=== PATIENT | female | born 1965 | race Caucasian/White ===

== ENCOUNTER 2025-03-16 12:34 | Outpatient (OUT) | payer BC, SELFPAY ==
--- OUTSIDE RECORDS SUMMARY | 2025-02-27 09:15 | XMS_ITS | Encounter Summary ---
Author Organization [facility] Address [address], [address] [place] [address] Care Team Providers Care Protection Engineer Name Role Phone Masha Miner [employer] Primary Care Provide r Encounter Details DateTypeDepartmentCare Team (Latest Contact Info)Juctujqxcld79/08/2025 9:15 AM EST - 03/01/2025 11:59 PM ESTHospital Encounter [facility] [address] [place], [place] [id number] Pain Discharge Disposition: Home or Self Care Social History Tobacco UseTypesPacks/DayYears UsedDateSmoking Tobacco: NeverSmokeless Tobacco: NeverAlcohol UseStandard Drinks/WeekCommentsYes0 (1 standard drink = 0.6 oz pure alcohol)[facility] UtilitiesAnswerDate RecordedIn the past 12 months has the [employer], gas, oil, or water [employer] threatened to shut off services in your home?No06/03/2024Overall Financial Resource Strain (CARDIA)AnswerDate Recorded How hard is it for you to pay for the very basics like food, housing, medical care, and heating?Not hard at all07/29/2023HQ-2AnswerDate RecordedPHQ-9 Total Eizrz240Hunger Vital SignAnswerDate RecordedWithin the past 12 months, you worried that your food would run out before you got the money to buymore. Never true06/03/2024Within the past 12 months, the food you bought just didn't last and you didn't have money to get more.Never true06/03/2024PRAPARE - TransportationAnswerDate RecordedIn the past 12 months, has lack of transportation kept you from medical appointments or from getting medications?No 06/03/2024In the past 12 months, has lack of transportation kept you from meetings, work, or from getting things needed for daily living?No06/03/2024 Housing Stability Vital SignAnswerDate RecordedUnable to Pay for Housing in the Last YearNot on file07/29/2023Number of Places Lived in the Last YearNot on file 07/29/2023In the last 12 months, was there a time when you did not have a steady place to sleep or slept in ashelter (including now)?No07/29/2023Housing Stability Vital SignAnswerDate RecordedIn the last 12 months, was there a time when you were not able to pay the mortgage or rent on time?No06/03/2024In the past 12 months, how many times have you moved where you were living? At any time in the past 12 months, were you homeless or living in a residential (including now)?No06/03/2024Food InsecurityAnswerDate RecordedWithin the past 12 months, you worried that your food would run out before you got the money to buy more.Within the past 12 months, the food you bought just didn't last and you didn't have money to get more.CommentsNoSex and Gender InformationValueDate RecordedSex Assigned at EpsuwOqgxyh33/25/2025 5:46 AM EDTLegal NliAjjmgw52/10/2013 6:41 PM ESTGender XjvdsykdUmgesc17/25/2025 5:46 AM EDTSexual OrientationNot on filedocumented as of this encounter Medications at Time of Discharge MedicationSigDispense QuantityRefillsLast FilledStart DateEnd Date Bacillus Coagulans-Inulin (PROBIOTIC) 1-250 BILLION-MG CAPS Take by mouth every morning topiramate (TOPAMAX) 100 MG tablet Indications:Migraine without aura and without status migrainosus, not intractableTake 1 tablet by mouth 2 times daily 180 tablet 309/ levothyroxine (SYNTHROID) 75 MCG tablet Take 1 tablet by mouth daily 90 tablet atorvastatin (LIPITOR) 20 MG tablet Take 1 tablet by mouth once daily 90 tablet citalopram (CELEXA) 20 MG tablet Take 1 tablet by mouth once daily 90 tablet [place]-3 Fatty Acids (FISH OIL PO) Fish Oil Cholecalciferol (VITAMIN D-3 PO) Vitamin X5cypwgptlow as of this encounter Plan of Treatment DateTypeDepartmentCare Team (Latest Contact Info)Hyoitslflqk70/16/2025 2:30 PM ESTOffice Visit [facility] Special[facility] Providers on Main [address] [address] Frank Barton MD [address] [place] [phone] 6 week follow up04/20/2025 7:20 AM ESTOffice Visit [facility] [address] [place] [address] [address] [place], [place] [id number] Masha Miner, [employer] [address] [place] [address] [address] [place] [address] 6 month f/udocumented as of this encounter Procedures Procedure NamePriorityDate/TimeAssociated DiagnosisCommentsXR FOOT RIGHT (MIN 3 VIEWS)Kxsurgk8102/27/2025 9:52 AM EST Pain documented in this encounter Results * XR FOOT RIGHT (MIN 3 VIEWS) (02/27/2025 9:52 AM EST)Anatomical Region LateralityModalityFoot, AnkleComputed RadiographySpecimen (Source)Anatomical Location / LateralityCollection Method / VolumeCollection TimeReceived Time 03/01/2025 3:06 PM EST Impressions 03/01/2025 3:07 PM EST 1. Mild degenerative change of the dorsal talonavicular joint. 2. No acute fracture or dislocation. Narrative 03/01/2025 3:07 PM EST EXAMINATION: THREE XRAY VIEWS OF THE RIGHT FOOT 02/27/2025 9:49 am COMPARISON: 01/31/2016 HISTORY: ORDERING SYSTEM PROVIDED HISTORY: Pain 59-year-old female with right foot pain FINDINGS: Osseous alignment is normal. ??Mild degenerative change of the dorsal talonavicular joint. ??Cornuate process at the medial navicular. ??No marginal erosions are identified. ??No acute fracture or gross dislocation is seen. The medial and middle cuneiforms demonstrate proper alignment with the base of the 1st and 2nd metatarsals respectively. No tibiotalar joint effusion is seen. Boehler's angle is maintained. Procedure Note Donnell Horner MD - 03/01/2025 EXAMINATION: THREE XRAY VIEWS OF THE RIGHT FOOT 02/27/2025 9:49 am COMPARISON: 01/31/2016 HISTORY: ORDERING SYSTEM PROVIDED HISTORY: Pain 59-year-old female with right foot pain FINDINGS: Osseous alignment is normal. Mild degenerative change of the dorsal talonavicular joint. Cornuate process at the medial navicular. Nomarginal erosions are identified. No acute fracture or gross dislocation isseen. The medial and middle cuneiforms demonstrate proper alignment with thebase of the 1st and 2nd metatarsals respectively. No tibiotalar joint effusion is seen. Boehler's angle is maintained. IMPRESSION: 1. Mild degenerative change of the dorsal talonavicular joint. 2. No acute fracture or dislocation. Authorizing ProviderResult TypeResult StatusJoel W Consolo DPMIMG DIAGNOSTIC IMAGING ORDERABLESFinal Result documented in this encounter Visit Diagnoses Diagnosis Pain Generalized pain documented in this encounter Care Teams Team MemberRelationshipSpecialtyStart DateEnd Date Masha Miner, [employer] [address] [facility] [address] [place] [address] PCP - GeneralFamily Nurse Practitioner09/12/22documented as of this encounter
--- OUTSIDE RECORDS SUMMARY | 2025-03-16 12:37 | XMS_ITS | Clinical Summary ---
Author Organization [facility] Address [address], [address] [place] [address] Care Team Providers Care Analyst Programmer Name Role Phone Masha Miner SHIP'S SURVEYOR - COMMUNICATION CLERK Primary Care Provide r Allergies No known active allergies Medications MedicationSigDispense QuantityRefillsLast FilledStart DateEnd DateStatus Buffalo-3 Fatty Acids (FISH OIL PO) Fish OilActive Cholecalciferol (VITAMIN D-3 PO) Vitamin O6Vebbfz citalopram (CELEXA) 20 MG tablet Take 1 tablet by mouth once daily 90 tablet 5Active atorvastatin (LIPITOR) 20 MG tablet Take 1 tablet by mouth once daily 90 tablet 5Active levothyroxine (SYNTHROID) 75 MCG tablet Take 1 tablet by mouth daily 90 tablet 5Active topiramate (TOPAMAX) 100 MG tablet Indications:Migraine without aura and without status migrainosus, not intractableTake 1 tablet by mouth 2 times daily 180 tablet 5Active Bacillus Coagulans-Inulin (PROBIOTIC) 1-250 BILLION-MG CAPS Take by mouth every morningActive Active Problems ProblemNoted DateDiagnosed DateFamily history of breast cancer in mother 10/08/2023Mixed whrcmybtckyxkr23/09/2023Other jviivlowbiwz23/24/2022ilateral leg edema01/28/2018Renal oczchc5405/01/20171900Uvewvbmkzmjjda34/26/2017GAD (generalized anxiety disorder)08/14/2016Migraine without status migrainosus, not zxhvcdkjily26/05/2016 Resolved Problems ProblemNoted DateDiagnosed DateResolved DateClosed fracture of distal end of efiiah70olon cancer zcvcqilya55Migraine without status migrainosus, not bpmpeyonrdx83Concussion Overview (10/08/2023): Fall injury Fracture of skull as Encounters DateTypeDepartmentCare GcmbCmnnubdprez34/08/2025 9:15 AM EST - 03/01/2025 11:59 PM ESTHospital Encounter [facility] [address] [place], [place] [id number] Pain Discharge Disposition: Home or Self Care02/18/2025bstract [facility] [address] [place] [address] Dr [address] [place] [address] Masha Miner, SHIP'S SURVEYOR - COMMUNICATION CLERK 02/18/2025Telephone [facility] [address] [place] [address] Dr [address] [place] [address] Masha Miner, SHIP'S SURVEYOR - COMMUNICATION CLERK MAMMOGRAM/ULTRASOUND HZMWRO4102/09/2025 3:00 PM EDTOffice Visit [facility] Main [place] [address] [place], [place] [id number] Frank Barton MD Other specified hypothyroidism (Primary Dx); LEONEL (generalized anxiety disorder)01/19/2025Refill [facility] [address] [place] [address] Dr [address] [place] [address] Masha Miner, SHIP'S SURVEYOR - COMMUNICATION CLERK Medication Refillfrom Last 3 Months Immunizations ImmunizationAdministration DatesNext DueCOVID-19, Inactive, J&J, (age 18y+) 07/08/2020Influenza Vaccine, unspecified uzqiwdfjaik49/05/2016Influenza Virus Rvegcrw9102/23/2019Influenza, AFLURIA (age 3 y+), FLUZONE, (age 6 mo+), Quadv MDV, 0.5mL02/23/2019MMR, PRIORIX, M-M-R II, (age 12m+), SC, 0.5mL10/23/2015TDaP, ADACEL (age 10y-64y), BOOSTRIX (age 10y+), IM, 0.5mL10/23/2015 Family History Medical HistoryRelationNameCommentsHeart DiseaseFatherBreast CancerMaternal Aunt Breast CancerMotherHeart DiseaseMotherStrokeMotherOtherSister 1RelationName StatusCommentsFatherMaternal AuntAliveMotherSister 1Sister 2AliveSister 3Alive Social History Tobacco UseTypesPacks/DayYears UsedDateSmoking Tobacco: NeverSmokeless Tobacco: Never Tobacco Cessation:Counseling Given: Not Answered Alcohol UseStandard Drinks/WeekCommentsYes0 (1 standard drink = 0.6 oz pure alcohol)socialAHC UtilitiesAnswerDate RecordedIn the past 12 months has the [employer], gas, oil, or water [place] threatened to shut off services in your home?No06/03/2024Overall Financial Resource Strain (CARDIA)AnswerDate Recorded How hard is it for you to pay for the very basics like food, housing, medical care, and heating?Not hard at all07/29/2023HQ-2AnswerDate RecordedPHQ-9 Total Aojja991Hunger Vital SignAnswerDate RecordedWithin the past 12 months, [...] were you homeless or living in a halfway (including now)?No06/03/2024Food InsecurityAnswerDate RecordedWithin the past 12 months, you worried that your food would run out before you got the money to buy more.Within the past 12 months, the food you bought just didn't last and you didn't have money to get more.CommentsNoSex and Gender InformationValueDate RecordedSex Assigned at QvrouRylkxg27/25/2025 5:46 AM EDTLegal FrzVgvcaw55/10/2013 6:41 PM ESTGender RyupwtzqUogwba15/25/2025 5:46 AM EDTSexual OrientationNot on file Last Filed Vital Signs Vital SignReadingTime TakenCommentsBlood Kxnwznza328/8610 3:05 PM EDT Vxbfz262602/09/2025 3:05 PM DSZAzwawpuwtat86.4 ??C (95.7 ??F)10/19/2024 4:09 PM EDTRespiratory Ydcs753408/24/2023 7:28 AM EDTOxygen Gdcqqdleyj55%02/09/2025 3:05 PM EDTInhaled Oxygen Concentration--Vmqtvh94.8 kg (162 lb 11.2 oz)02/09/2025 3:05 PM VELEjkatw227.9 cm (5' 1 )06/22/2024 11:34 AM ESTBody Mass Index30.74 06/22/2024 11:34 AM EST Plan of Treatment DateTypeDepartmentCare Team (Latest Contact Info)Mlscmmrrnxs22/16/2025 2:30 PM ESTOffice Visit [facility] Main [address] [address] Frank Braton MD [address] [place] [address] 6 week follow up04/20/2025 7:20 AM ESTOffice Visit [facility] [address] [place] [address] [address] [place] [address] Masha Miner, SHIP'S SURVEYOR - COMMUNICATION CLERK [address] [place] [address] [address] [place] [address] 6 month f/uHealth MaintenanceDue DateLast DoneCommentsHIV thpzvg6309/03/1979 Hepatitis C fgkqwt6009/02/1982FIT/FOBT: Average risk2009Fecal-DNA (Cologuard): Average risk2009Sigmoidoscopy/CT ihtragjfksxu70/14/2010 Pneumococcal 50+ years Vaccine (1 of 1 - PCV)2014Shingles vaccine (1 of 2) 2014Flu vaccine (#1), 02/23/2019, 01/25/2016COVID-19 Vaccine (2 - season)/reast cancer cqvadf5401/12/2025 01/13/2024, 08/16/2020, 12/23/2018, Additional history existsColonoscopy /05/2015Colorectal Cancer Ffzgpg2605/24/2025Depression Screen /, 07/14/20249675Svefbp18/19/202606/, 12/28/2023, 01/04/2023, Additional history existsDTaP/Tdap/Td vaccine (2 - Td or Tdap) /06/2015Pap smear/, 05/14/2016Cervical cancer urerqv9010/07/2028HPV (without or with Pap)/2024Respiratory Syncytial Virus (RSV) or age 60 yrs+ (1 - 1-dose 75+ series)09/03/2039 Diabetes bjvwbgVkyqbinkkoee63/19/2025, 12/28/2023, 09/12/2022Hepatitis A vaccine Aged OutNo longer eligible based on patient's age to complete this topic Hepatitis B vaccineAged OutNo longer eligible based on patient's age to complete this topicHib vaccineAged OutNo longer eligible based on patient's age to complete this topicMeningococcal (ACWY) vaccineAged OutNo longer eligible based on patient's age to complete this topicMeningococcal B vaccineAged OutNo longer eligible based on patient's age to complete this topicPolio vaccineAged OutNo longer eligible based on patient's age to complete this topic Procedures Procedure NamePriorityDate/TimeAssociated DiagnosisCommentsXR FOOT RIGHT (MIN 3 VIEWS)Pxmzzkc0902/27/2025 9:52 AM EST Pain LIPID TEWOEUmariaj92/19/2025 7:25 AM EDT Wellness examination HEMOGLOBIN K7AGcqjatu71/19/2025 7:24 AM EDT Wellness examination JUDIE RISA DIGITAL DIAGNOSTIC GMGYJDLSFSelubkt81/23/2024 8:48 AM EDT Mass of lower inner quadrant of left breast Breast skin changes HUMAN PAPILLOMAVIRUS (HPV) DNA PROBE THIN PREP HIGH KJBATyjqqwn56/18/2024 12:00 AM EDT MANAGER COMMERCIAL SALES UEDQUOTSQfmlwbm63/18/2024 12:00 AM EDT COLONOSCOPY W/ OR W/O JVKTESEqfzvzn63/02/2016from Last 3 Months or Most Recently Relevant to Health Maintenance Results * XR FOOT RIGHT (MIN 3 [...] W [place]olo DPMIMG DIAGNOSTIC IMAGING ORDERABLESFinal Result * Lipid Panel (10/08/2024 7:25 AM EDT)ComponentValueRef RangeTest MethodAnalysis TimePerformed AtPathologist SignatureCholesterol, Jgjgv7105 - 199 mg/dL 10/08/2024 7:25 AM EDTMERCY LABORATORIESComment: Cholesterol Guidelines: <200 Desirable 200-240 ??Borderline >240 Undesirable HDL64>40 mg/dL10/08/2024 7:25 AM EDTMERCY LABORATORIESComment: HDL Guidelines: <40 Undesirable 40-59 ?Borderline >59 Desirable LDL Skhqvggwpqk554 - 100 mg/dL10/08/2024 7:25 AM EDTMERCY LABORATORIESComment: LDL Guidelines: <100 Desirable 100-129 ?? Near to/above Desirable 130-159 ?? Borderline >159 Undesirable Direct (measured) LDL and calculated LDL are not interchangeable tests. Chol/HDL Ratio2.6<5.006 7:25 AM EDTMERCY LOYLVGBBFJBHBeroekiupfdjh39<150 mg/dL10/08/2024 7:25 AM EDTMERCY LABORATORIESComment: Triglyceride Guidelines: <150 Desirable 150-199 ??Borderline 200-499 ??High >499 Very high Based on AHA Guidelines for fasting triglyceride, January 2012. HGFG646 - 30 mg/dL10/08/2024 7:25 AM EDTMERCY LABORATORIESSpecimen (Source) Anatomical Location / LateralityCollection Method / VolumeCollection Time Received TimeBloodBLOOD SPECIMEN / Hntpuvy5810/08/2024 7:25 AM EDT10/08/2024 7:26 AM EDT Narrative Authorizing ProviderResult TypeResult Dave Miner SHIP'S SURVEYOR - CNPCHEMISTRY ORDERABLESFinal ResultPerforming OrganizationAddressCity/State/ZIP CodePhone Number [facility] [address] [place] [address], [facility] [phone] [facility] [address] [place] [address], [facility] [phone] * Hemoglobin A1C (10/08/2024 7:24 AM EDT)ComponentValueRef RangeTest Method Analysis TimePerformed AtPathologist SignatureHemoglobin A1C5.14.0 - 6.0 % 10/08/2024 7:24 AM EDTMERCY LABORATORIESEstimated Avg Witbrem811zs/dL 10/08/2024 7:24 AM EDTMERCY LABORATORIESComment: The ADA and AACC recommend providing the estimated average glucose result to permit better patient understanding of their HBA1c result. Specimen (Source)Anatomical Location / LateralityCollection Method / Volume Collection TimeReceived TimeBloodBLOOD SPECIMEN / Wnecutw9610/08/2024 7:24 AM EDT 10/08/2024 7:25 AM EDT Narrative Authorizing ProviderResult TypeResult Dave Miner SHIP'S SURVEYOR - CNPCHEMISTRY ORDERABLESFinal ResultPerforming OrganizationAddressCity/State/ZIP Code[place] [address], [facility] [phone] [place] [id number], [facility] [phone] * (ABNORMAL) JUDIE RISA DIGITAL DIAGNOSTIC BILATERAL (01/13/2024 8:48 AM EDT) Anatomical RegionLateralityModalityBreastBilateralMammographySpecimen (Source) Anatomical Location / LateralityCollection Method / VolumeCollection Time Received Time01/13/2024 9:32 AM EDT Impressions 01/13/2024 9:34 AM EDT Ill-defined area of 3 x 3 x 5 mm hypoechogenicity in the area of palpable concern left breast likely benign. ??Recommend six-month ultrasound follow-up of this finding. BIRADS: BIRADS - CATEGORY 3 Probably Benign Findings. A short interval follow-up is recommended in 6 months. OVERALL ASSESSMENT - PROBABLY BENIGN. A letter of notification will be sent to the patient regarding the results. Performing Facility: [place] [address] Narrative 01/13/2024 9:34 AM EDT EXAMINATION: DIAGNOSTIC DIGITAL BILATERAL BREASTS MAMMOGRAM WITH TOMOSYNTHESIS; TARGETED ULTRASOUND OF THE LEFT BREAST; TARGETED ULTRASOUND OF THE RIGHT BREAST, 01/13/2024 8:48 am TECHNIQUE: Diagnostic mammography of the bilateral breasts was performed with tomosynthesis. ??2D standard and 3D tomosynthesis combination imaging performed through both breasts. ??Computer aided detection was utilized in the interpretation of this exam.; Target ultrasound of the left breast was performed.; Targeted ultrasound of the right breast was performed. Views: COMPARISON: August 16, 2020 HISTORY: ORDERING SYSTEM PROVIDED HISTORY: Mass of lower inner quadrant of left breast FINDINGS: Mammogram: There are scattered areas of fibroglandular density. ??There is no dominant mass, architectural distortion or concerning grouping of microcalcification in either breast. Ultrasound: Ultrasound right breast 6 o'clock 4 cm from the nipple directed by the patient to the area of concern demonstrates no solid or cystic mass. ??No suspicious findings. Ultrasound left breast 5 o'clock position 9 cm from the nipple in the area of palpable concern demonstrates ill-defined 3 x 3 x 5 mm hypoechogenicity. ??No associated vascularity. Additional imaging left axilla and 7 o'clock 6 cm from nipple left breast demonstrates no significant findings. Authorizing ProviderResult TypeResult StatusMasah Miner SHIP'S SURVEYOR - CNPIMG MAMMOGRAPHY ORDERABLESFinal Result * Human papillomavirus (HPV) DNA probe thin prep high risk (10/08/2023 12:00 AM EDT)ComponentValueRef RangeTest MethodAnalysis TimePerformed AtPathologist SignatureSpecimen DescriptionCERVICAL ZOMPBYUE13/18/2024 12:00 AM EDTMERCY LABORATORIESHPV Sample.THIN PREP10/08/2023 12:00 AM EDTMERCY LABORATORIESHPV, Genotype 16Not DetectedNot Mkdqmmvr45/18/2024 12:00 AM EDTMERCY LABORATORIES HPV, Genotype 18Not DetectedNot Irjpwhdj39/18/2024 12:00 AM EDTMERCY LABORATORIESHPV, High Risk OtherNot DetectedNot Yufytkph95/18/2024 12:00 AM EDTMERCY LABORATORIESHPV, Jwlfgbbrrjhnck15/18/2024 12:00 AM EDTMERCY LABORATORIESComment: This test amplifies and detects DNA of 14 high-risk HPV types associated with cervical cancer and its precursor lesions (HPV types 16,18, 31, 33, 35, 39, 45, 51, 52, 56, 58, 59, 66, and 68). ? Sensitivity may be affected by specimen collection methods, stage of infection, and the presence of interfering substances. Results should be interpreted in conjunction with other available laboratory and clinical data. A negative high-risk HPV result does not exclude the possibility of future cytologic HSIL or underlying CIN2-3 or cancer. ? This test is intended for medical purposes only and is not valid for the evaluation of suspected sexual abuse or for other forensic purposes. Specimen (Source)Anatomical Location / LateralityCollection Method / Volume Collection TimeReceived TimeCERVICAL VQLBXTHT77/18/2024 Narrative Authorizing ProviderResult TypeResult StatusMasha Miner SHIP'S SURVEYOR - CNPHEMATOLOGY ORDERABLESFinal ResultPerforming OrganizationAddressCity/State/ZIP CodePhone Number [facility] [address] [place] [address], [facility] [phone] [employer] [address] [place] [address], [facility] [phone] * MANAGER COMMERCIAL SALES Cytology (10/08/2023 12:00 AM EDT)ComponentValueRef RangeTest Method Analysis TimePerformed AtPathologist SignatureCytology ReportPath Number: [id number] DIAGNOSIS Imaged ThinPrep Pap - Cervical (1 monolayer slide): Specimen Adequacy: ? Satisfactory for evaluation. ? -Endocervical/transformation zone component cannot be determined due to atrophy. Descriptive Diagnosis: ? Negative for intraepithelial lesion or malignancy. ?? Cytotech Screener: ??EY Electronically Signed Out Sanjeev YANCEY(ASCP) /10/17/2023 Procedure/Addendum HPV Procedure Report ? Date Ordered: ? 10/09/2023 ? Status: Signed Out ? Date Complete: ? 10/10/2023 ? By: System Interface ? Date Reported: ? 10/10/2023 ? Sample: ??HPV Type 16 ?Result: ?? Not Detected ?Ref Range: (Not Detected) Sample: ??HPV Type 18 ?Result: ?? Not Detected ?Ref Range: (Not Detected) Sample: ??Other High Risk HPV ?Result: ?? Not Detected ?Ref Range: (Not Detected) Sample: ??HPV Interp ?Result: ? Ref Range: (Not Detected) This test amplifies and detects DNA of 14 high-risk HPV types associated with cervical cancer and its precursor lesions (HPV types 16,18, 31, 33, 35, 39, 45, 51, 52, 56, 58, 59, 66, and 68). ? Sensitivity may be affected by specimen collection methods, stage of infection, and the presence of interfering substances. Results should be interpreted in conjunction with other available laboratory and clinical data. A negative high-risk HPV result does not exclude the possibility of future cytologic HSIL or underlying CIN2-3 or cancer. ? This test is intended for medical purposes only and is not valid for the evaluation of suspected sexual abuse or for other forensic purposes. Performed at [address] [address] ([phone] ?? Source of Specimen: A: Imaged ThinPrep Pap - Cervical (1 monolayer slide) HPV Reflex?......................HPV Regardless Clinical History Z12.4 Encounter for screening for malignant neoplasm of cervix Processing Lab: [address] [address] Interpretation performed at [address] [address] This Pap Test has been evaluated with the assistance of the ThinPrep Pap Test Imaging System. The Pap smear is a screening test primarily for squamous epithelial lesions, which is subject to both false negative and false positive results. Your patient should be reminded to consult you immediately if she experiences any suspicious signs or symptoms, regardless of her Pap smear result. GYNECOLOGIC CYTOLOGY REPORT Patient Name: CHERELLE WANG [facility] Rec: [id number] [facility] ??[facility] ANATOMIC PATHOLOGY [address] [place] [address]. ??[place], [place] [address] [facility] [place] LABSSpecimen (Source)Anatomical Location / LateralityCollection Method / VolumeCollection TimeReceived Time CERVICAL BWETKHJQ85/ 6:36 AM EDT Narrative Authorizing ProviderResult TypeResult StatusMasha Miner SHIP'S SURVEYOR - COMMUNICATION CLERK PATHOLOGY/CYTOLOGY ORDERABLESFinal ResultPerforming OrganizationAddress City/State/ZIP CodePhone Number [facility] [address] [place] [address], [facility] [phone] [facility] [place] [facility] * COLONOSCOPY W/ OR W/O BIOPSY (05/24/2015) Narrative Authorizing ProviderResult TypeResult StatusHistorical Provider MDGENERAL SURGICAL ORDERABLESFinal Result from Last 3 Months or Most Recently Relevant to Health Maintenance Insurance Care Teams Team MemberRelationshipSpecialtyStart DateEnd Date Masha Miner, SHIP'S SURVEYOR - COMMUNICATION CLERK [address] [place] [id number] PCP - GeneralFamily Nurse Practitioner09/12/22
--- OUTSIDE RECORDS SUMMARY | 2025-03-16 12:37 | XMS_ITS | Clinical Summary ---
Author Organization [facility] Healthcare Address [address] [place] [address] Care Team Providers Care Nozzle Cement Sprayer Helper Name Role Phone Unavailable Primary Care Provider Unavailabl e Allergies No known active allergies Medications MedicationSigDispense QuantityRefillsLast FilledStart DateEnd DateStatus atorvastatin (Lipitor) 20 MG tablet Take 20 mg by mouth DailyActive levothyroxine (Synthroid, Levoxyl) 125 MCG tablet Take 125 mcg by mouth Daily12/01/2023ctive topiramate (Topamax) 100 MG tablet Take 100 mg by mouth in the morning and 100 mg before bedtime.12/12/2023ctive citalopram (CeleXA) 20 MG tablet Take 20 mg by mouth DailyActive Active Problems No known active problems Social History Tobacco UseTypesPacks/DayYears UsedDateSmoking Tobacco: NeverSmokeless Tobacco: Never Tobacco Cessation:Counseling Given: Not Answered CommentsUnknownSex and Gender InformationValueDate RecordedSex Assigned at BirthNot on fileLegal TqpEupwue36/21/2024 10:44 AM EDTGender IdentityFemale 01/10/2024 7:48 PM EDTSexual OrientationNot on file Plan of Treatment Not on file Insurance
--- OUTSIDE RECORDS SUMMARY | 2025-03-16 12:37 | XMS_ITS | Patient Health Record ---
Author Organization [facility] Address [address] [place] [address] Care Team Providers Care Technical Operator Name Role Phone Masha Miner CNP Primary Care Provider Unavail able Jorge Bowen Unavailable [phone] Reason For Referral No Information Medications Medication SIG (Take, Route, Frequency, Duration) Notes Start Date End Date Status topiramate UnknownlevothyroxineUnknowncitalopramUnknownatorvastatinUnknownFish OilUnknown Vitamin W8Isczgaz Social History Tobacco Use: Social History Observation Description Date Details (start date - stop date) Never Smoker NA - NA Smoking History Question Answer Notes Smoking Status NonSmoker AUDIT-C (Standard) Question Answer Notes Did you have a drink containing alcohol in the p ast year? Yes Did you have a drink containing alcohol in the past year?YesDid you have a drink containing alcohol in the past year?YesHow often did you have six or more drinks on one occasion in the past year?Never (0 point)How often did you have six or more drinks on one occasion in the past year?Never (0 point)How many drinks did you have on a typical day when you were drinking in the past year?Declined to specify (0 point)How many drinks did you have on a typical day when you were drinking in the past year?Declined to specify (0 point)How often did you have a drink containing alcohol in the past year?Monthly or less (1 point)How often did you have a drink containing alcohol in the past year?Monthly or less (1 point) Problems Problem Type SNOMED Code ICD Code Onset Dates Problem Status W/U Status Risk Notes Problem Pain in wrist (09996684) Right wrist pain (M25.531) ActiveconfirmedProblemOther intraarticular fracture of lower end of right radius, subsequent encounter for closed fracture with routine healing (S52.574U) ActiveconfirmedProblemClosed fracture of distal end of right radius, unspecified fracture morphology, initial encounter (S52.501A)Activeconfirmed Plan Of Treatment Pending Test Test Name Order Date SCC- WRIST 3 VIEW RIGHT 05605 09/11/2023 SCC- WRIST 3 VIEW RIGHT 52876 10/09/2023 SCC- WRIST 3 VIEW RIGHT 06642 11/06/2023 SCC- WRIST 3 VIEW RIGHT [id number] 12/04/2023 Insurance Providers Payer Name Payer Address Payer Phone Subscriber Number Group Number Insured Name Patient Relationship to Insured Coverage Start Date Coverage End Date [employer] [address] [address] [place] [address] [id number] CHERELLE MCCOY Self - patient is the insured Medical (General) History Medical History History ICD Code Anxiety: Yes Bronchitis: YesCPAP Machine:: NoHealthcare worker: NoLatex Allergy: NoThyroid disease: YesHave you been in close contact with someone who has had MRSA within the last year?: NoHave you ever had or presently have MRSA?: NoHave you been seen by a dentist in the last year?: NoDo you have any dental problems i.e. Broken, loose, or chipped teeth, absess, gum disease?: NoSurgical History Surgery Date(Month/Year) foot surgery
--- NOTE | 2025-03-16 12:40 | US_ITS ---
Patient Name: CHERELLE MCCOY MR#: [id number] : 1965 Exam Date: 03/16/2025 Ordering Doctor: CECILIA JACKSON RADIOLOGY REPORT PROCEDURE: MM TOMOSYNTHESIS DIAGNOSTIC BI, 03/16/2025, 12:40 US BREAST LT LIMITED, 03/16/2025, 13:32 COMPARISON: MM TOMOSYNTHESIS DIAGNOSTIC BI, 01/13/2024. MM TOMOSYNTHESIS SCREENING BI, 08/16/2020. INDICATIONS: mass of left breast Calculator Name NCI Breast Cancer Risk Assessment Tool 5 Year Breast Cancer Risk 2.80% Lifetime Breast Cancer Risk 13.90% Personal Breast Cancer No Personal Ovarian Cancer No Treatments None Family Cancers Mother with breast cancer at age 60. LOCATION: [facility] BREAST COMPOSITION: There are scattered areas of fibroglandular density. FINDINGS: DIAGNOSTIC CATEGORY 1--NEGATIVE. RIGHT BREAST: No significant suspicious finding. LEFT BREAST: No significant suspicious finding. Ultrasound imaging of the area of palpable lump at the 5 o'clock position of the left breast demonstrates no solid mass or cyst. RECOMMENDATIONS: ROUTINE MAMMOGRAM AND CLINICAL EVALUATION IN 12 MONTHS. The patient's breast lump should be on a clinical basis. Dictated by: Francisco Villalobos DO on 03/16/2025 at 13:57 Approved by: Francisco Villalobos DO on 03/16/2025 at 14:03
== END 2025-03-16 12:35 | disposition home or self-care (01) ==
LOC: MAMMO 12:34
PROVIDERS: PCP Nurse Practitioner Women's Health; Visit Provider Nurse Practitioner Women's Health
DX: N63.20 Unspecified lump in the left breast, unspecified quadrant (principal); Z80.3 Family history of malignant neoplasm of breast; R92.8 Other abnormal and inconclusive findings on diagnostic imaging of breast
CPT/HCPCS: 76642; 77066; G0279